=== PATIENT | female | born 1990 | race American Indian/Alaskan Native ===

== ENCOUNTER 2017-09-07 21:53 | Inpatient (IN) | payer MEDICAID ==
[2017-09-07 21:53] VITALS: BMI 37.3
[2017-09-07 22:51] LABS: BASO % 0.3 % (0.0-2.0); EOS % 0.2 % (0.0-4.0); LYMPH # 1.5 K/uL (1.0-4.3); LYMPH % 12.9 % (20.0-40.0); MEAN CORPUSCULAR HEMOGLOBIN 27.6 pg (27.0-31.0); MEAN CORPUSCULAR HGB CONC 32.8 g/dL (33.0-37.0); MEAN PLATELET VOLUME 9.3 fL (7.2-11.7); MONO # 0.4 K/uL (0.0-0.8); MONO % 3.7 % (0.0-10.0); NEUT # 9.7 K/uL (1.8-7.0); NEUT % 82.9 % (50.0-75.0); RBC 4.35 Mil/uL (3.80-5.20); WHITE BLOOD COUNT 11.7 K/uL (4.8-10.8)
[2017-09-07 22:56] LABS: MEAN CELL VOLUME 84.2 fL (81.0-99.0)
[2017-09-07 23:08] LABS: ALB/GLOB RATIO 1.2 (1.0-2.1); ALBUMIN 3.9 g/dL (3.5-5.0); ALT/SGPT 27 U/L (9-52); AST/SGOT 20 U/L (14-36); BLOOD UREA NITROGEN 8 mg/dL (7-17); CALCIUM 8.4 mg/dl (8.6-10.4); GFR AFRICAN-AMERICAN > 60; GFR NON-AFRICAN AMERICAN > 60; LIPASE 69 U/L (23-300)
[2017-09-07] MEDS ORDERED: Sodium Chloride 0.9% 1,000 ML IV ONE (23:47)
[2017-09-07] MEDS ORDERED: Sodium Chloride 0.9% 1,000 ML ONE (23:53)
--- NOTE | 2017-09-08 00:09 | C.PDOC ---
History Of Present Illness 27 year old female is brought to the ED by ambulance for evaluation of lower abdominal discomfort which began earlier today. 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 Patient states her LMP was 08/07/17. She denies fever, chills, nausea, vomiting, diarrhea. [id number]. Ectopic: "can't rember when nor which side" Was seeing Dr. Pleitez from psychiatry regularly regarding her persistent PCP abuse, up until 05/23 then is lost to followup with any psych services Lives with her mother. 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 As they will drug test for this job, she plans to stop PCP abuse and clean up for that drug test and job. Time Seen by Provider: 09/07/17 22:06 Chief Complaint (Nursing): Abdominal Pain History Per: Patient History/Exam Limitations: no limitations Onset/Duration Of Symptoms: Hrs Current Symptoms Are (Timing): Still Present Location Of Pain/Discomfort: RLQ, LLQ Radiation Of Pain To:: None Quality Of Discomfort: "Pain" Associated Symptoms: denies: Fever, Chills, Nausea, Vomiting, Diarrhea Additional History Per: Patient Abnormal Vaginal Bleeding: No Last Menstral Period: 08/07/2017 Past Medical History Reviewed: Historical Data, Nursing Documentation, Vital Signs Vital Signs: Last Vital Signs Temp 97.5 F L 09/08/17 04:01 Pulse 78 09/08/17 04:01 Resp 20 09/08/17 04:01 BP 100/56 L 09/08/17 04:01 Pulse Ox 98 09/08/17 04:27 - Medical History PMH: Asthma Surgical History: No Surg Hx - [facility] Procedures MANUAL ASSIST DELIV NEC (12/09/14) Family History: States: Unknown Family Hx - Social History Hx Tobacco Use: Yes Hx Alcohol Use: No Hx Substance Use: Yes - Immunization History Hx Tetanus Toxoid Vaccination: No Hx Influenza Vaccination: No Hx Pneumococcal Vaccination: No Review Of Systems Constitutional: Negative for: Fever, Chills Gastrointestinal: Positive for: Abdominal Pain (lower ). Negative for: Nausea, Vomiting Psych: Positive for: Other Physical Exam - Physical Exam Appears: Non-toxic, No Acute Distress, Other (bizarre black female ) Skin: Normal Color, Warm, Dry Head: Atraumatic, Normacephalic Eye(s): bilateral: Normal Inspection Oral Mucosa: Moist Chest: Symmetrical, No Deformity, No Tenderness Cardiovascular: Rhythm Regular, No Murmur Respiratory: Normal Breath Sounds, No Rales, No Rhonchi, No Wheezing Gastrointestinal/Abdominal: Soft, Tenderness (mild, to lower abdomen ), No Guarding, No Rebound, Other (abdomen does not appear gravid. 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 No intrauterine gestation. DDX: Early IUP , missed , ectopic . 2. Left adnexal lesions, indeterminate. Ectopic not excluded. 3. Complex free fluid within abdomen and pelvis , likely hemorrhage/clots. Progress Note: Bloodwork, UA, Obstructive Series abdomen ordered. Tylenol PO and IV fluids administered. Case discussed with [facility] radiologist at 330. Case dicussed with Dr. Regalado (MOUNTAIN OR GLACIER GUIDE balloon artist) at 330. Dr. Regalado evaluated the patient at bedside at 345. Difficult IV access, nursing asked to help with blood draw, with Marcia Sanchez radial artery with butterfly needle for T/ S draw without complication. Reevaluation Time: 04:27 Reassessment Condition: Improved Critical Care Time - Critical Care Note Total Time (in mins): 90 Documented critical care: time excludes all time spent performing seperately billable procedures. Medical Decision Making Medical Decision Making: L ectopic mild UTI continued PCP and cannabis abuse. Disposition Doctor Will See Patient In The: Hospital Counseled Patient/Family Regarding: Studies Performed, Diagnosis - Disposition Disposition: HOSPITALIZED Disposition Time: 03:46 Condition: GOOD Forms: [facility] (Arabic) - Clinical Impression Clinical Impression: Ectopic , UTI (urinary tract infection), PCP abuse, Cannabis abuse - Scribe Statement The provider has reviewed the documentation as recorded by the Scribe (Tiffanie Lutz) Provider Attestation: All medical record entries made by the Scribe were at my direction and personally dictated by me. I have reviewed the chart and agree that the record accurately reflects my personal performance of the history, physical exam, medical decision making, and the department course for this patient. I have also personally directed, reviewed, and agree with the discharge instructions and disposition.
[2017-09-08 00:28] LABS: SQUAMOUS EPITHIAL 1 /hpf (0-5); URINE BACTERIA RARE (<OCC); URINE BILIRUBIN NEGATIVE (NEGATIVE); URINE BLOOD NEGATIVE (NEGATIVE); URINE CLARITY Clear (Clear); URINE COLOR Yellow (YELLOW); URINE GLUCOSE (UA) NORMAL (Normal); URINE LEUKOCYTE ESTERASE 2+ Leu/uL (Negative); URINE NITRATE NEGATIVE (NEGATIVE); URINE PROTEIN 1+ mg/dL (NEGATIVE)
[2017-09-08 00:30] LABS: HCG,QUALITATIVE URINE POSITIVE (NEGATIVE)
[2017-09-08 01:10] LABS: BARBITURATES, UR NEGATIVE (NEGATIVE); BENZODIAZEPINES, UR NEGATIVE (NEGATIVE); OPIATES, UR NEGATIVE (NEGATIVE)
[2017-09-08 01:11] LABS: PHENCYCLIDINE, UR POSITIVE (NEGATIVE)
--- NOTE | 2017-09-08 03:15 | US ---
EXAM: US First Trimester, Transabdominal CLINICAL HISTORY: 27 years old, female; Pain; Pelvic pain; Patient HX: 2 miscarriages; Additional info: Early preg with pelvic pain TECHNIQUE: Real-time transabdominal obstetrical ultrasound of the maternal pelvis and a first trimester with image documentation. COMPARISON: No relevant prior studies available. FINDINGS: Gestation: No intrauterine gestational sac. Uterus/cervix: Endometrium: 1.3 cm in thickness. Closed cervix. Ovaries: Normal ovaries. Two thick walled hypoechoic lesions within left adnexal region, larger measuring 2.5 x 2.1 x 2.5 cm. Free fluid: Moderate complex free fluid and solid components within pelvis. Complex free fluid within upper abdomen, right greater than left. IMPRESSION: 1. No intrauterine gestation. DDX: Early IUP, missed , ectopic . 2. Left adnexal lesions, indeterminate. Ectopic not excluded. 3. Complex free fluid within abdomen and pelvis, likely hemorrhage/clots. EXAM: US , Transvaginal CLINICAL HISTORY: 27 years old, female; Pain; Pelvic pain; Patient HX: 2 miscarriages; Additional info: Early preg with pelvic pain TECHNIQUE: Real-time transvaginal obstetrical ultrasound of the maternal pelvis and a first trimester with image documentation. Transvaginal imaging was used for better evaluation of the fetus and adnexa. COMPARISON: No relevant prior studies available. FINDINGS: Gestation: No intrauterine gestational sac. Uterus/cervix: Endometrium: 1.3 cm in thickness. Closed cervix. Ovaries: Normal ovaries. Two thick walled hypoechoic lesions within left adnexal region, larger measuring 2.5 x 2.1 x 2.5 cm. Free fluid: Moderate complex free fluid and solid components within pelvis. Complex free fluid within upper abdomen, right greater than left.
--- NOTE | 2017-09-08 04:20 | CP.PCM.HP ---
History of Present Illness - History of Present Illness History of Present Illness: Patient received in E.D., Bed#3, in apparent pain - asking for pain medications ; not wanting to move or be moved. 27 y.o. P2052, LMP unsure, around 08/23/17 x 4 days presents with c/o sudden onset LLQ pain, approx 2200 hours 09/07/17 - "I felt faint and sweaty" pain scale 10/10. Took flory dust (combo PCP and marijuana) to alleviate the pain - (+) vomiting; no relief - came to E.D. In E.D., quant HCG 5168 mIU. TV ultrasound noted for two cystic structures in the vicinity of the left ovary, moderate amount of complex free fluid in cul-de-sac; no IUP seen. Patient with h/o prior ectopic . P OB: x 2: 2009 female, 2015, male; both FT; "normal weights". Spont ab x 2 ; VTOP x 2 with D&C. 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 (+) h/o chlamydia "in the past" PMH: h/o asthma - last attack "a while ago; been a couple of years"; Never intubated PSH: D&C x 2; cerclage x 2; 2005, laparoscopy for ectopic Meds: denies NKDA Soc Hx: (+) PCP and cannibanis use - last used 09/07/17, approx 2300 hours; (+) tobacco use, 2 cig/day. Denies EtOH use. Fam Hx: Mother alive 50 y.o. HTN. Father secondary to [place], h/o HTN, DM Present on Admission - Present on Admission Any Indicators Present on Admission: No Review of Systems - Gastrointestinal Gastrointestinal: As Per HPI, Abdominal Pain Additional comments: Slightly distended. (+) peritoneal signs. Soft. (+) rebound - generalized. - Genitourinary Additional comments: Bimanual exam deferred to O.R. - Reproductive: Female Reproductive:Female: As Per HPI - Neurological Neurological: Dizziness Past Patient History - Infectious Disease Hx of Infectious Diseases: None - Tetanus Immunizations Tetanus Immunization: Unknown - Past Social History Smoking Status: Light Smoker < 10 Cigarettes Daily Chewing Tobacco Use: No Cigar Use: No Alcohol: None Drugs: Cannabis, Other (PCP) - CARDIAC Hx Cardiac Disorders: No - PULMONARY Hx Asthma: Yes - ENDOCRINE/METABOLIC Hx Endocrine Disorders: No - HEMATOLOGICAL/ONCOLOGICAL Hx Blood Disorders: No - INTEGUMENTARY Hx Dermatological Problems: No - MUSCULOSKELETAL/RHEUMATOLOGICAL Hx Musculoskeletal Disorders: No - GASTROINTESTINAL Hx Gastrointestinal Disorders: No - GENITOURINARY/GYNECOLOGICAL Hx Sexually Transmitted Disorders: Yes (chlamydia) LMP:: 08/23/17 : 8 Para: 2 Termination of : 5 - PSYCHIATRIC Hx Substance Use: Yes - SURGICAL HISTORY Hx Surgeries: Yes Other/Comment: Laparoscopy for ectopic - ANESTHESIA Hx Anesthesia: Yes Hx Anesthesia Reactions: No Hx Malignant Hyperthermia: No Meds Allergies/Adverse Reactions: Allergies Allergy/AdvReac Type Severity Reaction Status Date / Time Penicillins Allergy SHORTNESS Verified 09/07/17 22:03 OF BREATH Physical Exam - Constitutional Appears: No Acute Distress Additional comments: In pain - Head Exam Head Exam: NORMAL INSPECTION, NORMOCEPHALIC (pale sclerae) - Eye Exam Additional comments: pale sclerae - ENT Exam ENT Exam: Mucous Membranes Moist - Neck Exam Neck exam: Positive for: Full Rom - Respiratory Exam Respiratory Exam: NORMAL BREATHING PATTERN - Cardiovascular Exam Cardiovascular Exam: Tachycardia - GI/Abdominal Exam GI & Abdominal Exam: Soft ((+) rebound tenderness; (+) peritoneal sign) - Extremities Exam Extremities exam: Positive for: full ROM - Neurological Exam Neurological exam: Alert, Oriented x3 - Psychiatric Exam Psychiatric exam: Anxious (slurred speech) - Skin Skin Exam: Dry, Intact, Normal Color, Warm Results - Vital Signs Recent Vital Signs: Last Vital Signs Temp 97.5 F L 09/08/17 04:01 Pulse 78 09/08/17 04:01 Resp 20 09/08/17 04:01 BP 100/56 L 09/08/17 04:01 Pulse Ox 100 09/08/17 04:01 - Labs Result Diagrams: 09/07/17 22:47 09/07/17 22:47 Labs: Laboratory Results - last 24 hr 09/07/17 09/07/17 09/08/17 22:47 22:47 00:17 WBC 11.7 H RBC 4.35 Hgb 12.0 Hct 36.6 MCV 84.2 D MCH 27.6 MCHC 32.8 L RDW 13.0 Plt Count 247 D MPV 9.3 Neut % (Auto) 82.9 H Lymph % (Auto) 12.9 L Kenton % (Auto) 3.7 Eos % (Auto) 0.2 Baso % (Auto) 0.3 Neut # 9.7 H Lymph # 1.5 Kenton # 0.4 Eos # 0.0 Baso # 0.0 Sodium 133 Potassium 4.1 Chloride 99 Carbon Dioxide 26 Anion Gap 12 BUN 8 Creatinine 0.5 L Est GFR ( Amer) > 60 Est GFR (Non-Af Amer) > 60 POC Glucose (mg/dL) Random Glucose 115 H Calcium 8.4 L Total Bilirubin 0.3 AST 20 ALT 27 Alkaline Phosphatase 45 Total Protein 7.1 Albumin 3.9 Globulin 3.2 Albumin/Globulin Ratio 1.2 Lipase 69 Beta HCG, Quant Urine Color Yellow Urine Clarity Clear Urine pH 7.0 Ur Specific Rowland 1.026 Urine Protein 1+ H Urine Glucose (UA) Normal Urine Ketones Negative Urine Blood Negative Urine Nitrate Negative Urine Bilirubin Negative Urine Urobilinogen 2.0 H Ur Leukocyte Esterase 2+ H Urine WBC (Auto) 47 H Urine RBC (Auto) 13 H Ur Squamous Epith Cells 1 Urine Bacteria Rare Urine HCG, Qual Positive Urine Opiates Screen Urine Methadone Screen Ur Barbiturates Screen Ur Phencyclidine Scrn Ur Amphetamines Screen U Benzodiazepines Scrn U Oth Cocaine Metabols U Cannabinoids Screen Alcohol, Quantitative < 10 Blood Type Antibody Screen 09/08/17 09/08/17 09/08/17 00:17 00:43 02:22 WBC RBC Hgb Hct MCV MCH MCHC RDW Plt Count MPV Neut % (Auto) Lymph % (Auto) Kenton % (Auto) Eos % (Auto) Baso % (Auto) Neut # Lymph # Kenton # Eos # Baso # Sodium Potassium Chloride Carbon Dioxide Anion Gap BUN Creatinine Est GFR ( Amer) Est GFR (Non-Af Amer) POC Glucose (mg/dL) Random Glucose Calcium Total Bilirubin AST ALT Alkaline Phosphatase Total Protein Albumin Globulin Albumin/Globulin Ratio Lipase Beta HCG, Quant 5168.00 Urine Color Urine Clarity Urine pH Ur Specific Rowland Urine Protein Urine Glucose (UA) Urine Ketones Urine Blood Urine Nitrate Urine Bilirubin Urine Urobilinogen Ur Leukocyte Esterase Urine WBC (Auto) Urine RBC (Auto) Ur Squamous Epith Cells Urine Bacteria Urine HCG, Qual Urine Opiates Screen Negative Urine Methadone Screen Negative Ur Barbiturates Screen Negative Ur Phencyclidine Scrn Positive H Ur Amphetamines Screen Negative U Benzodiazepines Scrn Negative U Oth Cocaine Metabols Negative U Cannabinoids Screen Positive H Alcohol, Quantitative Blood Type B POSITIVE Antibody Screen Negative 09/08/17 04:06 WBC RBC Hgb Hct MCV MCH MCHC RDW Plt Count MPV Neut % (Auto) Lymph % (Auto) Kenton % (Auto) Eos % (Auto) Baso % (Auto) Neut # Lymph # Kenton # Eos # Baso # Sodium Potassium Chloride Carbon Dioxide Anion Gap BUN Creatinine Est GFR ( Amer) Est GFR (Non-Af Amer) POC Glucose (mg/dL) 126 H Random Glucose Calcium Total Bilirubin AST ALT Alkaline Phosphatase Total Protein Albumin Globulin Albumin/Globulin Ratio Lipase Beta HCG, Quant Urine Color Urine Clarity Urine pH Ur Specific Rowland Urine Protein Urine Glucose (UA) Urine Ketones Urine Blood Urine Nitrate Urine Bilirubin Urine Urobilinogen Ur Leukocyte Esterase Urine WBC (Auto) Urine RBC (Auto) Ur Squamous Epith Cells Urine Bacteria Urine HCG, Qual Urine Opiates Screen Urine Methadone Screen Ur Barbiturates Screen Ur Phencyclidine Scrn Ur Amphetamines Screen U Benzodiazepines Scrn U Oth Cocaine Metabols U Cannabinoids Screen Alcohol, Quantitative Blood Type Antibody Screen Assessment & Plan - Assessment and Plan (Free Text) Assessment: Lab results and ultrasound images and report reviewed by me personally 27 yo P2052, elevated quant HCG, no IUP. free fluid in pelvis, h/o previous ectopic - probable ruptured ectopic . PCP/marijuana abuser; and tobacco use - h/o asthma. Patient counseled on surgical management: expl lap with removal of tube/diseased tissue; other R/C were discussed. Patient expressed an understanding and agrees with plan; no questions offered. Consents signed, dated, witnessed and placed in chart. Patient in guarded, yet stable condition Plan: Admit NPO IVFs Clindaymicn pre-op Benítez to gravity weight caller to O.R. - Date & Time Date: 09/08/17 Time: 04:35
[2017-09-08 04:40] LABS: INR 1.1; PROTHROMBIN TIME 12.5 SECONDS (9.7-12.2)
[2017-09-08] MEDS: Lactated Ringer's 1,000 ML IV SCH ×3 (04:52→16:00)
[2017-09-08] MEDS ORDERED: Lactated Ringer's 1,000 ML IV ONE ×3 (05:20→07:21)
[2017-09-08] MEDS ORDERED: Midazolam 2 MG/2 ML VIAL ONE (05:22)
[2017-09-08] MEDS ORDERED: Propofol 10 mg/ml Inj (20 ML) ONE (05:22)
[2017-09-08] MEDS ORDERED: Rocuronium 10 mg/ml (5 ml) ONE (06:39)
[2017-09-08] MEDS ORDERED: Morphine 4 MG/ML VIAL ONE (07:11)
--- NOTE | 2017-09-08 07:26 | PCM.SURG1 ---
Surgeon's Initial Post Op Note - Surgeon's Notes Surgeon: Daphnie Regalado MD Incising Machine Operator: Dr. Cancino Type of Anesthesia: General Endo Anesthesia Administered By: Ward Paz MD Pre-Operative Diagnosis: Ruptured ectopic ; history prevous ectopic ; polysubstance abuse Operative Findings: Ruptured left ectopic ; Status post right salpingectomy Post-Operative Diagnosis: Same Operation Performed: Left salpingectomy Specimen/Specimens Removed: Left fallopian tube Estimated Blood Loss: EBL {In ML}: 1,500 (U.O. 200mL; 2,000 mL LR) Blood Products Given: N/A Drains Used: No Drains Post-Op Condition: Good Date of Surgery/Procedure: 09/08/17 Time of Surgery/Procedure: 07:26
[2017-09-08] MEDS ORDERED: DiphenhydrAMINE 50 mg/ml Inj IVP PRN (07:31)
[2017-09-08] MEDS ORDERED: Morphine Monoject Barrel PCA 1mg/ml IV PRN (07:31)
--- NOTE | 2017-09-08 13:08 | OP ---
PROCEDURE DATE: 09/08/2017 SURGEON: Daphnie Regalado MD METALLURGICAL ENGINEERING TECHNICIAN: Damion Canicno MD ANESTHESIA ADMINISTERED BY: Ward Paz MD PREOPERATIVE DIAGNOSES: Ruptured left ectopic with a history of previous ectopic , history of polysubstance abuse. POSTOPERATIVE DIAGNOSES: Ruptured left ectopic with hemoperitoneum, history previous ectopic , status post previous right salpingectomy. OPERATION PERFORMED: Left salpingectomy. COMPLICATIONS: None. ESTIMATED BLOOD LOSS: 1500 mL URINE OUTPUT: 200 mL. INTRAVENOUS FLUIDS: 2,000 mL of LR. DESCRIPTION OF PROCEDURE: The patient was taken to the operating room after having obtained informed consent for the anticipated procedure. This included a discussion of possible risks and complications including but not limited to infection requiring antibiotics, hemorrhage requiring blood transfusion, repair of any damaged internal organs. The patient expressed an understanding. No questions were offered. Consents were signed, dated, witnessed and placed in the chart. En route to the operating room, the patient received Cleocin 600 mg. In the operating room, she was transferred to the operating room table where general anesthesia with endotracheal intubation was administered without incident. A Benítez indwelling catheter was inserted under sterile conditions and the patient was subsequently repositioned in a supine manner. The abdomen was prepped and she was draped in the usual sterile fashion. Using a scalpel, Pfannenstiel incision was made on the skin. The incision was carried down through the subcutaneous tissue using the Bovie electrocautery. The fascia was identified. It was nicked in the midline and the incision was extended bilaterally also using the Bovie electrocautery. The rectus muscle was dissected off the overlying fascia. The rectus muscle was in the midline by blunt dissection. The parietal peritoneum was identified and it was tented up using 2 Mara clamps and the abdomen was entered via sharp dissection. Immediately upon entering the abdominal cavity, copious amount of dark red blood with clots were retrieved. This was suctioned off. The patient was placed in Trendelenburg and the bowel was packed with moist lap pads. Exploration of the pelvis revealed a ruptured left ectopic in the interstitial portion, which is still actively bleeding. This was grasped by a Sproul clamp and using the TANNER apparatus, salpingectomy was performed along the area of the avascular mesosalpinx. The specimen was removed en toto and forwarded to the Pathology. The reverse Trendelenburg was then performed and the additional suction was performed to remove as much as possible, blood which had tracked along the paracolic gutters. Hemostasis was assured on the ligated end of the fallopian tube using 2-0 chromic in a running interlocking fashion and Surgicel was placed along the surgical site. The patient was returned to a straight supine position. The parietal peritoneum was reapproximated using 2-0 chromic in a running fashion. The rectus muscle was reapproximated in the midline using 2-0 chromic in a running fashion. The fascia was reapproximated using 0 Vicryl in a running fashion two halves. The skin was reapproximated using surgical clips. Pressure dressing was applied. The patient was extubated and transferred to the recovery room in stable condition. Dr. Cancino was present for the entire procedure from beginning to end. His presence was necessary for 1) assisting in adequate visualization of the operative field at all times; and 2) assisting in assuring hemostasis. Daphnie MD Fabricio ARIES
[2017-09-08 14:00] LABS: LYMPH # 0.8 K/uL (1.0-4.3); LYMPH % 4.9 % (20.0-40.0); MEAN CELL VOLUME 84.3 fL (81.0-99.0); MEAN CORPUSCULAR HEMOGLOBIN 27.5 pg (27.0-31.0); MEAN CORPUSCULAR HGB CONC 32.6 g/dL (33.0-37.0); MEAN PLATELET VOLUME 9.7 fL (7.2-11.7); MONO # 0.3 K/uL (0.0-0.8); MONO % 2.1 % (0.0-10.0); NEUT # 14.2 K/uL (1.8-7.0); PLATELET COUNT 184 K/uL (130-400); RBC 2.66 Mil/uL (3.80-5.20); RED CELL DISTRIBUTION WIDTH 12.8 % (11.5-14.5); WHITE BLOOD COUNT 15.3 K/uL (4.8-10.8)
[2017-09-08 14:08] LABS: HEMOGLOBIN 7.3 g/dL (11.0-16.0)
[2017-09-08 14:47] LABS: BANDS 1 % (0-2); LYMPHOCYTE 5 % (20-40); MONOCYTE 1 % (0-10); NEUTROPHIL 93 % (50-75); PLATELET ESTIMATE NORMAL (NORMAL); TOTAL CELLS COUNTED 100
[2017-09-08 14:48] LABS: HYPOCHROMIC SLIGHT; MICROCYTOSIS SLIGHT
[2017-09-09] MEDS: Lactated Ringer's 1,000 ML IV SCH ×4 (00:14→21:13)
[2017-09-09 08:54] LABS: BASO % 0.2 % (0.0-2.0); HEMOGLOBIN 6.6 g/dL (11.0-16.0); LYMPH # 2.1 K/uL (1.0-4.3); LYMPH % 13.5 % (20.0-40.0); MEAN CELL VOLUME 84.4 fL (81.0-99.0); MEAN CORPUSCULAR HEMOGLOBIN 27.4 pg (27.0-31.0); MEAN CORPUSCULAR HGB CONC 32.5 g/dL (33.0-37.0); MEAN PLATELET VOLUME 9.9 fL (7.2-11.7); MONO # 1.1 K/uL (0.0-0.8); MONO % 7.1 % (0.0-10.0); NEUT % 79.2 % (50.0-75.0); RBC 2.4 Mil/uL (3.80-5.20); RED CELL DISTRIBUTION WIDTH 12.8 % (11.5-14.5); WHITE BLOOD COUNT 15.2 K/uL (4.8-10.8)
[2017-09-09 09:25] LABS: ALB/GLOB RATIO 1.1 (1.0-2.1); ALBUMIN 2.6 g/dL (3.5-5.0); ALT/SGPT 20 U/L (9-52); AST/SGOT 16 U/L (14-36); BLOOD UREA NITROGEN 3 mg/dL (7-17); CALCIUM 7.8 mg/dl (8.6-10.4); GFR AFRICAN-AMERICAN > 60; GFR NON-AFRICAN AMERICAN > 60
[2017-09-09] MEDS ORDERED: Oxycodone/Acetaminophen 5/325 mg Tab PO PRN (10:23)
[2017-09-09] MEDS: Ferrous Fum/Folic Acid/IF/VI 1 Cap PO SCH ×3 (10:55→17:56)
--- NOTE | 2017-09-09 11:28 | CP.PCM.PN ---
<MarlineShahab Ash - Last Filed: 09/09/17 11:38> Subjective - Date & Time of Evaluation Date of Evaluation: 09/09/17 Time of Evaluation: 11:25 - Subjective Subjective: Patient was seen and examined at bedside. She is still complaining of pain, and does state that when she sits up she is "seeing stars." Patient was informed that due to her left sided emergent salpingectomy, she will no longer be able to have natural pregnancies. Patient expressed understanding of this fact. No further complaints at this time. Objective - Vital Signs/Intake and Output Vital Signs (last 24 hours): Temp Pulse Resp BP Pulse Ox 98.6 F 90 20 112/62 100 09/09/17 08:00 09/09/17 08:00 09/09/17 08:00 09/09/17 08:00 09/09/17 08:00 Intake and Output: 09/09/17 09/09/17 06:59 18:59 Intake Total 2655 Output Total 2050 Balance 605 - Medications Medications: Current Medications Diphenhydramine HCl (Benadryl) 25 mg IVP Q6 PRN PRN Reason: Itching / Pruritus Docusate Sodium (Colace) 100 mg PO TID [facility] Last Admin: 09/09/17 10:55 Dose: 100 mg Lactated Ringer's (Lactated Ringer's) 1,000 mls @ 125 mls/hr IV .Q8H [facility] Last Admin: 09/09/17 06:24 Dose: Not Given Iron (Ferocon) 1 cap PO TID [facility] Last Admin: 09/09/17 10:55 Dose: 1 cap Morphine Sulfate (Morphine) 1 mg IVP Q6 PRN PRN Reason: Pain, severe (8-10) Ondansetron HCl (Zofran Inj) 4 mg IVP Q8H PRN PRN Reason: Nausea/Vomiting Oxycodone/Acetaminophen (Percocet 5/325 Mg Tab) 2 tab PO Q4H PRN PRN Reason: Moderate to severe pain Stop: 09/12/17 10:24 - Labs Labs: 09/09/17 08:42 09/09/17 08:42 PT 12.5 SECONDS (9.7-12.2) H 09/08/17 04:41 INR 1.1 09/08/17 04:41 APTT 20 SECONDS (21-34) L 09/08/17 04:41 - Constitutional Appears: Well - Head Exam Head Exam: ATRAUMATIC, NORMAL INSPECTION, NORMOCEPHALIC - Eye Exam Eye Exam: EOMI, Normal appearance, PERRL Pupil Exam: NORMAL ACCOMODATION, PERRL - ENT Exam ENT Exam: Mucous Membranes Moist, Normal Exam - Neck Exam Neck Exam: Full ROM, Normal Inspection. absent: Lymphadenopathy - Respiratory Exam Respiratory Exam: Clear to Ausculation Bilateral, NORMAL BREATHING PATTERN - Cardiovascular Exam Cardiovascular Exam: REGULAR RHYTHM, +S1, +S2. absent: Murmur - GI/Abdominal Exam GI & Abdominal Exam: Soft, Normal Bowel Sounds. absent: Tenderness Additional comments: Site of dawson is c/d/i with no signs of infection - Rectal Exam Rectal Exam: NORMAL INSPECTION - Extremities Exam Extremities Exam: Full ROM, Normal Capillary Refill, Normal Inspection. absent : Calf Tenderness, Joint Swelling, Pedal Edema - Back Exam Back Exam: NORMAL INSPECTION. absent: CVA tenderness (L), CVA tenderness (R) - Neurological Exam Neurological Exam: Alert, Awake, CN II-XII Intact, Normal Gait, Oriented x3 - Psychiatric Exam Psychiatric exam: Normal Affect, Normal Mood - Skin Skin Exam: Dry, Intact, Normal Color, Warm Assessment and Plan - Assessment and Plan (Free Text) Assessment: 27 year old with Past Medical History of drug abuse presents with Ruptured left sided ectopic s/p Left Salpingectomy POD #1, and 1.5 L blood loss. Has previous history of ectopic with R Salpingectomy as well. Exploratory Laparotomy with Left Salpingectomy POD#1 - Pain control with Percocet for moderate to severe, and Morphine IV for breakthrough pain - Encourage use of incentive spirometer - D/c blackman, encourage ambulation - Discontinue fluids, tolerating diet - Pre-op prophylactic antibiotics discontinued Acute Blood Loss Anemia - Started patient on iron TID and colace TID - Transfuse 2 U PRBC's DVT Prophylaxis - SCD's Dispo: Patient will be monitored until POD 3, 09/11/16, at which point we will evaluate discharge. Patient is to follow up with [facility] within a week of discharge. <Daphnie Regalado - Last Filed: 09/09/17 14:50> Objective - Vital Signs/Intake and Output Vital Signs (last 24 hours): Temp Pulse Resp BP Pulse Ox 98.1 F 102 H 20 109/66 98 09/09/17 13:55 09/09/17 13:55 09/09/17 13:55 09/09/17 13:55 09/09/17 12:20 Intake and Output: 09/09/17 09/09/17 06:59 18:59 Intake Total 2655 0 Output Total 2050 Balance 605 0 - Medications Medications: Current Medications Diphenhydramine HCl (Benadryl) 25 mg IVP Q6 PRN PRN Reason: Itching / Pruritus Docusate Sodium (Colace) 100 mg PO TID [facility] Last Admin: 09/09/17 10:55 Dose: 100 mg Lactated Ringer's (Lactated Ringer's) 1,000 mls @ 125 mls/hr IV .Q8H [facility] Last Admin: 09/09/17 06:24 Dose: Not Given Iron (Ferocon) 1 cap PO TID [facility] Last Admin: 09/09/17 10:55 Dose: 1 cap Morphine Sulfate (Morphine) 1 mg IVP Q6 PRN PRN Reason: Pain, severe (8-10) Ondansetron HCl (Zofran Inj) 4 mg IVP Q8H PRN PRN Reason: Nausea/Vomiting Oxycodone/Acetaminophen (Percocet 5/325 Mg Tab) 2 tab PO Q4H PRN PRN Reason: Moderate to severe pain Stop: 09/12/17 10:24 Last Admin: 09/09/17 13:05 Dose: 2 tab - Labs Labs: 09/09/17 08:42 09/09/17 08:42 PT 12.5 SECONDS (9.7-12.2) H 09/08/17 04:41 INR 1.1 09/08/17 04:41 APTT 20 SECONDS (21-34) L 09/08/17 04:41 Attending/Attestation - Attestation I have personally seen and examined this patient.: Yes I have fully participated in the care of the patient.: Yes I have reviewed all pertinent clinical information, including history, physical exam and plan: Yes Notes (Text): 09/09/17 14:46 At the time of evaluation of patient with Resident, patient denied nausea or vomiting after regular diet - breakfast. As documented, findings at surgery and procedure performed was discussed at length. It was also explained that in light of the bilateral salpingectomy, patient will not be able to conceive spontaneously. Patient appeared moved. Also, post-operative anemia explained; recommendation for blood transfusion was made - patient receptive. Patient encouraged to walk, to use incentive spirometer; and upon discharge, to follow up at [facility] in 1 week. Patient is clinically stable. Plan: 1) as above.
[2017-09-09] MEDS: Oxycodone/Acetaminophen 5/325 mg Tab PO PRN ×2 (13:05→21:13)
[2017-09-10] MEDS: Lactated Ringer's 1,000 ML IV SCH (04:00)
[2017-09-10 06:54] LABS: BASO # 0.1 K/uL (0.0-0.2); BASO % 0.6 % (0.0-2.0); EOS % 0.4 % (0.0-4.0); HEMOGLOBIN 7.9 g/dL (11.0-16.0); LYMPH # 3.3 K/uL (1.0-4.3); LYMPH % 29.6 % (20.0-40.0); MEAN CELL VOLUME 84.5 fL (81.0-99.0); MEAN CORPUSCULAR HGB CONC 33.1 g/dL (33.0-37.0); MEAN PLATELET VOLUME 10.2 fL (7.2-11.7); MONO # 0.9 K/uL (0.0-0.8); MONO % 7.6 % (0.0-10.0); NEUT # 6.9 K/uL (1.8-7.0); NEUT % 61.8 % (50.0-75.0); RBC 2.83 Mil/uL (3.80-5.20); RED CELL DISTRIBUTION WIDTH 13.3 % (11.5-14.5); WHITE BLOOD COUNT 11.2 K/uL (4.8-10.8)
[2017-09-10] MEDS: Oxycodone/Acetaminophen 5/325 mg Tab PO PRN ×2 (09:04→19:49)
[2017-09-10] MEDS: Ferrous Fum/Folic Acid/IF/VI 1 Cap PO SCH ×3 (09:04→17:47)
--- NOTE | 2017-09-10 09:26 | CP.PCM.PN ---
Subjective - Date & Time of Evaluation Date of Evaluation: 09/10/17 Time of Evaluation: 09:23 - Subjective Subjective: s: tolerating reg diet; +flatus; no bm. pain controlled with percocet. oob to br denies syncope, dizziness. Objective - Vital Signs/Intake and Output Vital Signs (last 24 hours): Temp Pulse Resp BP Pulse Ox 98.6 F 85 18 104/66 100 09/10/17 07:25 09/10/17 07:25 09/10/17 07:25 09/10/17 07:25 09/10/17 07:25 Intake and Output: 09/10/17 09/10/17 06:59 18:59 Intake Total 2320 Output Total 700 Balance 1620 - Medications Medications: Current Medications Diphenhydramine HCl (Benadryl) 25 mg IVP Q6 PRN PRN Reason: Itching / Pruritus Docusate Sodium (Colace) 100 mg PO TID [facility] Last Admin: 09/10/17 09:04 Dose: 100 mg Lactated Ringer's (Lactated Ringer's) 1,000 mls @ 125 mls/hr IV .Q8H [facility] Last Admin: 09/10/17 04:00 Dose: 125 mls/hr Iron (Ferocon) 1 cap PO TID [facility] Last Admin: 09/10/17 09:04 Dose: 1 cap Morphine Sulfate (Morphine) 1 mg IVP Q6 PRN PRN Reason: Pain, severe (8-10) Last Admin: 09/10/17 04:06 Dose: 1 mg Ondansetron HCl (Zofran Inj) 4 mg IVP Q8H PRN PRN Reason: Nausea/Vomiting Oxycodone/Acetaminophen (Percocet 5/325 Mg Tab) 2 tab PO Q4H PRN PRN Reason: Moderate to severe pain Stop: 09/12/17 10:24 Last Admin: 09/10/17 09:04 Dose: 2 tab - Labs Labs: 09/10/17 06:41 09/09/17 08:42 PT 12.5 SECONDS (9.7-12.2) H 09/08/17 04:41 INR 1.1 09/08/17 04:41 APTT 20 SECONDS (21-34) L 09/08/17 04:41 - Constitutional Appears: Well, No Acute Distress - Head Exam Head Exam: ATRAUMATIC, NORMOCEPHALIC - Respiratory Exam Respiratory Exam: NORMAL BREATHING PATTERN - GI/Abdominal Exam GI & Abdominal Exam: Soft (Pfannensteil incision: c/d/i; no exudate), Normal Bowel Sounds - Extremities Exam Extremities Exam: Normal Inspection - Neurological Exam Neurological Exam: Alert, Oriented x3 - Psychiatric Exam Psychiatric exam: Normal Affect - Skin Skin Exam: Pallor (slight pallor) Assessment and Plan - Assessment and Plan (Free Text) Assessment: : POD #2 Laparotomy with Salpingectomy for ruptured ectopic Secondary Anemia s/p 2uprbc( hgb 6.6 to 7.9) UTI Plan: Repeat cbc @18:00 IV to hep lock Ambulate Abd binder Begin Macrobid
[2017-09-10] MEDS: Lactobacillus Acidophilus 500 MU Cap PO SCH ×2 (10:43→17:47)
[2017-09-10] MEDS: Docusate-Senna 50 mg-8.6 mg Tab PO SCH ×2 (10:51→17:47)
[2017-09-10 19:59] LABS: HEMOGLOBIN 8.8 g/dL (11.0-16.0); MEAN CELL VOLUME 84.6 fL (81.0-99.0); MEAN CORPUSCULAR HEMOGLOBIN 27.7 pg (27.0-31.0); MEAN CORPUSCULAR HGB CONC 32.8 g/dL (33.0-37.0); MEAN PLATELET VOLUME 9.1 fL (7.2-11.7); RBC 3.16 Mil/uL (3.80-5.20); RED CELL DISTRIBUTION WIDTH 13.1 % (11.5-14.5); WHITE BLOOD COUNT 11.9 K/uL (4.8-10.8)
[2017-09-11] MEDS: Oxycodone/Acetaminophen 5/325 mg Tab PO PRN (04:05)
--- NOTE | 2017-09-11 07:08 | CARD ---
APPROVED REPORT EKG Measurement Heart [id number] [place] 126P54 [id number] <Conclusion> Normal sinus rhythm Normal ECG
[2017-09-11 08:03] VITALS: BP 102/68; PULSE 72; RESP 18; TEMP 98.3; O2SAT 95
[2017-09-11] MEDS: Lactobacillus Acidophilus 500 MU Cap PO SCH (09:20)
[2017-09-11] MEDS: Docusate-Senna 50 mg-8.6 mg Tab PO SCH (09:21)
[2017-09-11] MEDS: Ferrous Fum/Folic Acid/IF/VI 1 Cap PO SCH (09:28)
--- NOTE | 2017-09-12 06:01 | DS ---
DISCHARGE DIAGNOSIS: Ruptured left ectopic , status post left salpingectomy. PROCEDURES PERFORMED: Left salpingectomy with laparotomy. CONSULTATIONS: None. HOSPITAL COURSE: Patient is a 27-year-old female, who presented to the emergency room with complaint of abdominal pain in left lower quadrant, which was sudden in onset. Patient had an ultrasound done and labs done and was found to have ruptured ectopic . She was thereafter taken to the operating room by Dr. Regalado. PAST MEDICAL HISTORY: Positive for asthma. PAST SURGICAL HISTORY: D and C x2, cerclage x2, laparoscopy for ectopic , and status post right salpingectomy. 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 SOCIAL HISTORY: Positive for PCP and cannabis use as well as for tobacco use. Patient was examined in the emergency room and had an ultrasound done and thereafter taken to the operating room for ruptured ectopic . She underwent laparotomy with left salpingectomy by Dr. Regalado. Postoperatively, patient was found to be anemic secondary to the rupture, the ectopic and the blood loss. She was thereafter transfused 2 units of packed red blood cells. Her diet was gradually advanced and she was transitioned to p.o. pain medications. The beta-hCG was monitored and found to have dropped. The hemoglobin improved after the transfusion. The patient started tolerating a regular diet. Her pain was adequately controlled. She was passing gas and thereafter the patient was discharged on 09/11/2016, which was postoperative day #3. She was advised to follow up at the [facility] in 1 week for staple removal. Patient was given infection precaution at the time of the discharge. Eliezer Cordero MD
== END 2017-09-11 14:11 | disposition home or self-care (01) | DRG 378 ==
LOC: C.ER 21:53 → C.6T 09-08 03:46
PROVIDERS: ADMIT Obstetrics & Gynecology; ATTEND Obstetrics & Gynecology
PROC: 10T20ZZ Resection of Products of Conception, Ectopic, Open Approach (ICD-10-PCS; 2017-09-08)
PROC: 0UT60ZZ Resection of Left Fallopian Tube, Open Approach (ICD-10-PCS; principal; 2017-09-08 05:00)
PROC: 30233N1 Transfusion of Nonautologous Red Blood Cells into Peripheral Vein, Percutaneous Approach (ICD-10-PCS; 2017-09-09)
DX: O00.102 Left tubal pregnancy without intrauterine pregnancy (principal); K66.1 Hemoperitoneum; O08.83 Urinary tract infection following an ectopic and molar pregnancy; D62 Acute posthemorrhagic anemia; F16.10 Hallucinogen abuse, uncomplicated; Z87.59 Personal history of other complications of pregnancy, childbirth and the puerperium; F12.10 Cannabis abuse, uncomplicated; J45.909 Unspecified asthma, uncomplicated; Z82.49 Family history of ischemic heart disease and other diseases of the circulatory system; Z83.3 Family history of diabetes mellitus

== ENCOUNTER 2018-03-11 22:50 | Emergency (ER) | payer MEDICAID ==
[2018-03-11 22:50] VITALS: BMI 37.3
[2018-03-11 23:20] VITALS: BP 112/77; PULSE 70; RESP 20; TEMP 98.9; O2SAT 97
--- NOTE | 2018-03-11 23:47 | C.PDOC ---
History Of Present Illness 27 y/o female with Hx of PCP abuse presents to ED for complaints of bilateral parasrernal area chest pain that began few days. Denies injuries or any other physical complaints. Time Seen by Provider: 03/11/18 23:43 Chief Complaint (Nursing): Chest Pain History Per: Patient History/Exam Limitations: no limitations Onset/Duration Of Symptoms: Hrs Current Symptoms Are (Timing): Still Present Associated Symptoms: denies: Nausea, Dyspnea, Diaphoresis, Syncope Modifying Factors: None Exacerbating Factors: None Alleviating Factors: None Recent travel outside of the [place]: No Past Medical History Reviewed: Historical Data, Nursing Documentation, Vital Signs Vital Signs: Last Vital Signs Temp 98.9 F 03/11/18 23:11 Pulse 70 03/11/18 23:11 Resp 20 03/11/18 23:11 BP 112/77 03/11/18 23:11 Pulse Ox 97 03/11/18 23:47 - Medical History PMH: Asthma, Sexually Transmitted Disease (chlamydia) - [facility] Procedures MANUAL ASSIST DELIV NEC (12/09/14) RESECTION OF LEFT FALLOPIAN TUBE, OPEN APPROACH (09/08/17) RESECTION OF PRODUCTS OF CONCEPTION, ECTOPIC, OPEN APPROACH (09/08/17) TRANSFUSE NONAUT RED BLOOD CELLS IN PERIPH VEIN, PERC (09/08/17) Family History: States: Unknown Family Hx - Social History Hx Tobacco Use: Yes Hx Alcohol Use: No Hx Substance Use: Yes - Immunization History Hx Tetanus Toxoid Vaccination: No Hx Influenza Vaccination: No Hx Pneumococcal Vaccination: No Review Of Systems Constitutional: Negative for: Fever, Chills Cardiovascular: Positive for: Chest Pain (Bilateral parasternal ) Gastrointestinal: Negative for: Nausea, Vomiting, Abdominal Pain, Diarrhea Skin: Negative for: Rash Neurological: Negative for: Weakness, Numbness Physical Exam - Physical Exam Appears: Non-toxic, No Acute Distress, Other (Nurse amisha at bed-side ) Skin: Warm, Dry, Other (Bizarre) Head: Atraumatic, Normacephalic Eye(s): bilateral: Normal Inspection, PERRL, EOMI Oral Mucosa: Moist Neck: Supple Chest: Symmetrical, Other (Digitally reproducible bilateral discomfort between T4-T5 areas) Cardiovascular: Rhythm Regular Respiratory: Normal Breath Sounds, No Decreased Breath Sounds, No Rales, No Rhonchi, No Wheezing Gastrointestinal/Abdominal: Soft, No Tenderness Extremity: Normal ROM, No Deformity Extremity: Bilateral: Atraumatic, Normal Color And Temperature, Normal ROM Neurological/Psych: Oriented x3, Normal Speech (Speaking in full sentences ), Other (No focal deficits ) Gait: Steady ED Course And Treatment ECG: Interpreted By Me ECG Rhythm: Sinus Rhythm ECG Interpretation: Normal Rate From EC O2 Sat by Pulse Oximetry: 97 (RA) Pulse Ox Interpretation: Normal Progress Note: motrin, ice pack Reevaluation Time: 23:46 Reassessment Condition: Improved Medical Decision Making Medical Decision Making: Administered Motrin. Ordered bloof work, EKG, and urinalysis. costochondritis, normal EKG persistent PCP abuse, daily- poor insight into quitting. Disposition Doctor Will See Patient In The: Office Counseled Patient/Family Regarding: Studies Performed, Diagnosis - Disposition Referrals: David Landa DO [Staff Provider] - Disposition: HOME/ ROUTINE Disposition Time: 23:47 Condition: GOOD Additional Instructions: ice packs to the chest wall 1/2 hour per hour, nothing hot. motrin/Advil 400-600 mg every 6 hours as needed follow-up With Dr. Landa Continue Therapy and efforts to stop smoking PCP regularly. There are serious physical and mental health hazards associated with the abuse of this drug. Instructions: Costochondritis Forms: [facility] (Spanish) - Clinical Impression Clinical Impression: PCP abuse, Chest wall discomfort - Scribe Statement The provider has reviewed the documentation as recorded by the Scribverena Hillman All medical record entries made by the Scribe were at my direction and personally dictated by me. I have reviewed the chart and agree that the record accurately reflects my personal performance of the history, physical exam, medical decision making, and the department course for this patient. I have also personally directed, reviewed, and agree with the discharge instructions and disposition.
[2018-03-11 23:56] LABS: HCG,QUALITATIVE URINE NEGATIVE (NEGATIVE)
[2018-03-11 23:58] LABS: SQUAMOUS EPITHIAL 15 /hpf (0-5); URINE BILIRUBIN NEGATIVE (NEGATIVE); URINE BLOOD 3+ (NEGATIVE); URINE CLARITY Hazy (Clear); URINE COLOR Yellow (YELLOW); URINE GLUCOSE (UA) NORMAL (Normal); URINE LEUKOCYTE ESTERASE 3+ Leu/uL (Negative); URINE PROTEIN NEGATIVE (NEGATIVE); URINE UROBILINOGEN NORMAL mg/dL (0.2-1.0)
[2018-03-12] LABS: URINE BACTERIA FEW (<OCC)
[2018-03-12 00:06] LABS: BARBITURATES, UR NEGATIVE (NEGATIVE); BENZODIAZEPINES, UR NEGATIVE (NEGATIVE); OPIATES, UR NEGATIVE (NEGATIVE)
[2018-03-12 01:18] LABS: PHENCYCLIDINE, UR POSITIVE (NEGATIVE)
--- NOTE | 2018-03-15 16:34 | CARD ---
APPROVED REPORT EKG Measurement Heart [id number] [place] 132P52 [id number] <Conclusion> Normal sinus rhythm Normal ECG
== END 2018-03-12 | disposition home or self-care (01) ==
LOC: C.ER 22:50
DX: R07.89 Other chest pain (principal); F16.10 Hallucinogen abuse, uncomplicated

== ENCOUNTER 2019-01-13 04:02 | Emergency (ER) | payer MEDICAID ==
[2019-01-13 04:02] VITALS: BMI 37.3
--- NOTE | 2019-01-13 04:25 | C.PDOC ---
History Of Present Illness 28 year old female presents with chest pain intermittently for the past few days. Patient describes the pain as sharp to the left parasternal area, increasing with movement and palpation. Denies SOB, fever, or chills. Chief Complaint (Nursing): Chest Pain History Per: Patient History/Exam Limitations: no limitations Onset/Duration Of Symptoms: Days, Intermittent Episodes Current Symptoms Are (Timing): Still Present Quality: Sharp Associated Symptoms: denies: Dyspnea, Other (Fever, chills) Exacerbating Factors: Movement, Other (Palpation) Recent travel outside of the [place]: No Past Medical History Reviewed: Historical Data, Nursing Documentation, Vital Signs Primary Care Provider: David Landa - Medical History PMH: Asthma, Sexually Transmitted Disease (chlamydia) Denies: Anxiety, Bipolar Disorder, Bronchitis, COPD, Depression, Emphysema, Paranoia, Pneumonia, Post Traumatic Stress Disorder, Pulmonary Embolism, Chronic Kidney Disease, Schizophrenia, Sleep Apnea - [facility] Procedures MANUAL ASSIST DELIV NEC (12/09/14) RESECTION OF LEFT FALLOPIAN TUBE, OPEN APPROACH (09/08/17) RESECTION OF PRODUCTS OF CONCEPTION, ECTOPIC, OPEN APPROACH (09/08/17) TRANSFUSE NONAUT RED BLOOD CELLS IN PERIPH VEIN, PERC (09/08/17) Family History: States: Unknown Family Hx - Social History Hx Tobacco Use: Yes Hx Alcohol Use: Yes Hx Substance Use: Yes - Immunization History Hx Tetanus Toxoid Vaccination: No Hx Influenza Vaccination: No Hx Pneumococcal Vaccination: No Review Of Systems Constitutional: Negative for: Fever, Chills Cardiovascular: Positive for: Chest Pain Respiratory: Negative for: Shortness of Breath Gastrointestinal: Negative for: Nausea, Vomiting Neurological: Negative for: Weakness, Numbness Physical Exam - Physical Exam Appears: Non-toxic, No Acute Distress Skin: Normal Color, Warm Head: Atraumatic, Normacephalic Eye(s): bilateral: Normal Inspection Oral Mucosa: Moist Neck: Normal, Supple Chest: Symmetrical, Tenderness (Left parasternal), Other (No swelling or erythema) Cardiovascular: Rhythm Regular Respiratory: Normal Breath Sounds, No Rales, No Rhonchi, No Wheezing Gastrointestinal/Abdominal: Soft, No Tenderness Neurological/Psych: Oriented x3, Normal Speech ED Course And Treatment - Laboratory Results Result Diagrams: 01/13/19 04:45 01/13/19 04:45 ECG: Interpreted By Me, Viewed By Me ECG Rhythm: Sinus Rhythm ECG Interpretation: Normal, No Acute Changes Interpretation Of ECG: NSR, normal tracings. Rate From EC - Radiology CXR: Interpreted by Me, Viewed By Me CXR Interpretation: Yes: No Acute Disease, Other (normal chest film.). No: Infiltrates Progress Note: EKG, blood work, and CXR ordered. Toradol administered. Disposition Counseled Patient/Family Regarding: Diagnosis - Disposition Referrals: David Landa DO [Staff Provider] - Disposition: HOME/ ROUTINE Disposition Time: 05:31 Condition: STABLE Prescriptions: Naproxen 375 mg PO TIDPC #14 tablet Instructions: Costochondritis (DC) Forms: [employer] (German) - POA Present On Arrival: None - Clinical Impression Clinical Impression: Chest wall pain - Scribe Statement The provider has reviewed the documentation as recorded by the Scribverena Zurita All medical record entries made by the Scribe were at my direction and personally dictated by me. I have reviewed the chart and agree that the record accurately reflects my personal performance of the history, physical exam, medical decision making, and the department course for this patient. I have also personally directed, reviewed, and agree with the discharge instructions and disposition.
[2019-01-13 04:28] VITALS: RESP 20; O2SAT 100
[2019-01-13 04:51] LABS: BASO # 0.1 K/uL (0.0-0.2); BASO % 0.7 % (0.0-2.0); EOS # 0.1 K/uL (0.0-0.7); EOS % 0.7 % (0.0-4.0); LYMPH # 3.1 K/uL (1.0-4.3); LYMPH % 31.6 % (20.0-40.0); MEAN CELL VOLUME 86.3 fL (81.0-99.0); MEAN CORPUSCULAR HEMOGLOBIN 27.9 pg (27.0-31.0); MEAN CORPUSCULAR HGB CONC 32.3 g/dL (33.0-37.0); MEAN PLATELET VOLUME 9.7 fL (7.2-11.7); MONO # 0.8 K/uL (0.0-0.8); MONO % 7.7 % (0.0-10.0); NEUT # 5.8 K/uL (1.8-7.0); NEUT % 59.3 % (50.0-75.0); RBC 4.29 Mil/uL (3.80-5.20); RED CELL DISTRIBUTION WIDTH 12.9 % (11.5-14.5); WHITE BLOOD COUNT 9.8 K/uL (4.8-10.8)
[2019-01-13 05:08] LABS: ALB/GLOB RATIO 1.3 (1.0-2.1); ALBUMIN 3.7 g/dL (3.5-5.0); BLOOD UREA NITROGEN 13 mg/dL (7-17); CALCIUM 8.4 mg/dl (8.6-10.4); GFR NON-AFRICAN AMERICAN > 60
[2019-01-13 05:26] LABS: ALT/SGPT 12 U/L (9-52); AST/SGOT 28 U/L (14-36)
[2019-01-13 06:04] LABS: URINE BILIRUBIN NEGATIVE (NEGATIVE); URINE CLARITY Hazy (Clear); URINE COLOR YELLOW (YELLOW); URINE GLUCOSE (UA) Normal (Normal)
[2019-01-13 06:05] LABS: SQUAMOUS EPITHIAL 9 /hpf (0-5); URINE BACTERIA RARE (<OCC); URINE BLOOD 1+ (NEGATIVE); URINE LEUKOCYTE ESTERASE 2+ Leu/uL (Negative); URINE PROTEIN NEGATIVE (NEGATIVE); URINE UROBILINOGEN Normal mg/dL (0.2-1.0)
[2019-01-13 06:37] VITALS: BP 104/71; PULSE 80; TEMP 98.2
--- NOTE | 2019-01-13 07:31 | RAD ---
Date of service: 01/13/2019 HISTORY: chest pain COMPARISON: No prior. TECHNIQUE: Chest PA and lateral views FINDINGS: LUNGS: No active pulmonary disease. PLEURA: No significant pleural effusion identified. No pneumothorax apparent. CARDIOVASCULAR: No aortic atherosclerotic calcification present. Normal cardiac size. No pulmonary vascular congestion. OSSEOUS STRUCTURES: No significant abnormalities. VISUALIZED UPPER ABDOMEN: Normal. OTHER FINDINGS: None. IMPRESSION: No active disease.
--- NOTE | 2019-01-13 16:53 | CARD ---
APPROVED REPORT Date of service: 01/13/2019 EKG Measurement Heart [id number] 124P30 [id number] <Conclusion> Normal sinus rhythm Normal ECG
== END 2019-01-13 06:37 | disposition home or self-care (01) ==
LOC: C.ER 04:02
DX: R07.89 Other chest pain (principal); N39.0 Urinary tract infection, site not specified; Z72.0 Tobacco use
CPT/HCPCS: 71046; 80053; 81001; 81025; 84484; 85025; 87086; 87181; 93005; 96374; 99284; J1885

== ENCOUNTER 2019-01-13 22:04 | Emergency (ER) | payer MEDICAID ==
[2019-01-13 22:04] VITALS: BMI 37.3
[2019-01-13 22:26] VITALS: RESP 20
--- NOTE | 2019-01-13 22:27 | C.PDOC ---
History Of Present Illness 28 yr old female w/ hx of asthma, STD, recent UTI p/w dizziness after taking naproxen. She denies any current dizziness but notes that after taking naproxen for chest pain earlier today she noticed dizziness which then resolved. She then took another naproxen 3 hours ago and noticed dizziness afterwards. Dizziness is non-vertigo like, and more like a lightheadedness. No FND. No headache. She denies having any of these symptoms when she took her Macrobid. She denies any current chest pain, shortness of breath or headache. No fall or trauma. She denies any other complaints. Time Seen by Provider: 01/13/19 22:27 Chief Complaint (Nursing): Dizziness/Lightheaded Past Medical History Vital Signs: Last Vital Signs Temp 99.1 F 01/13/19 22:20 Pulse 71 01/13/19 22:20 Resp 20 01/13/19 22:20 BP 115/80 01/13/19 22:20 Pulse Ox 98 01/13/19 22:20 Primary Care Provider: David Landa - Medical History PMH: Asthma, Sexually Transmitted Disease (chlamydia) Denies: Anxiety, Bipolar Disorder, Bronchitis, COPD, Depression, Emphysema, Paranoia, Pneumonia, Post Traumatic Stress Disorder, Pulmonary Embolism, Chronic Kidney Disease, Schizophrenia, Sleep Apnea - [facility] Procedures MANUAL ASSIST DELIV NEC (12/09/14) RESECTION OF LEFT FALLOPIAN TUBE, OPEN APPROACH (09/08/17) RESECTION OF PRODUCTS OF CONCEPTION, ECTOPIC, OPEN APPROACH (09/08/17) TRANSFUSE NONAUT RED BLOOD CELLS IN PERIPH VEIN, PERC (09/08/17) Family History: States: Unknown Family Hx - Social History Hx Tobacco Use: Yes Hx Alcohol Use: No Hx Substance Use: Yes - Immunization History Hx Tetanus Toxoid Vaccination: No Hx Influenza Vaccination: No Hx Pneumococcal Vaccination: No Review Of Systems Constitutional: Negative for: Fever, Chills, Weakness, Malaise Eyes: Negative for: Pain, Vision Change ENT: Negative for: Ear Pain, Ear Discharge, Nose Pain, Mouth Pain, Mouth Swelling, Throat Pain Cardiovascular: Negative for: Chest Pain, Palpitations Respiratory: Negative for: Cough, Shortness of Breath, Hemoptysis Gastrointestinal: Negative for: Nausea, Vomiting, Abdominal Pain, Constipation, Melena Genitourinary: Negative for: Dysuria, Frequency, Incontinence, Hematuria, Vaginal Discharge, Vaginal Bleeding Musculoskeletal: Negative for: Neck Pain, Shoulder Pain Skin: Negative for: Rash, Lesions Neurological: Negative for: Weakness, Numbness, Confusion, Seizures, Headache Psych: Negative for: Anxiety, Psychosis Physical Exam - Physical Exam Appears: Well, No Acute Distress Skin: Normal Color, Warm, Dry Head: Atraumatic, Normacephalic Eye(s): bilateral: Normal Inspection, PERRL, EOMI Nose: Normal Oral Mucosa: Moist Tongue: Normal Appearing Lips: Normal Appearing Throat: Normal, No Erythema, No Exudate, No Drooling, No Mass Neck: Normal, Normal ROM, Supple, Other (no meningeal signs) Lymphatic: Normal Exam Cardiovascular: Rhythm Regular Respiratory: Normal Breath Sounds Gastrointestinal/Abdominal: Normal Exam Back: Normal Inspection, No CVA Tenderness, No Vertebral Tenderness Extremity: Normal ROM, No Tenderness, No Pedal Edema Neurological/Psych: Oriented x3, Normal Speech, Normal Cognition, Normal Cranial Nerves, No Cerebellar Signs, Normal Motor, Normal Sensation, No Dysarthria Gait: Steady Extremity: Right: No Drift, Left: No Drift, Upper: No Drift, Lower: No Drift ED Course And Treatment O2 Sat by Pulse Oximetry: 98 Medical Decision Making Medical Decision Makin yr old female w/ recent dx of UTI p/w dizziness described as lightheadedness after taking naproxen. No fall or trauma. No meningeal signs. Normal neuro exam. No vertigo symptoms. Lightheadedness only occurs after taking naproxen. No other co-ingestions. Notes she feels fine when she takes her macrobid. No CVAT on exam EK, NSR, No stemi: unchaged from previous 1 repeat neuro exam unremarkable, denies any current dizziness or lightheadness, strong steady gait. Will d/c naproxen and prescribe tylenol for her costochondritis dx yesterday. pt in NAD, agreeable to plan Disposition - Disposition Referrals: [facility] [Outside] [facility] [Outside] [facility] [Outside] Disposition: HOME/ ROUTINE Disposition Time: 23:52 Condition: GOOD Additional Instructions: KERON CATHERINE, thank you for letting us take care of you today. Your provider was Gonzalo Palafox and you were treated for DIZZINESS. The emergency medical care you received today was directed at your acute symptoms. If you were prescribed any medication, please fill it and take as directed. It may take several days for your symptoms to resolve. Return to the Emergency Department if your symptoms worsen, do not improve, or if you have any other problems. Please contact your doctor or call one of the physicians/clinics you have been referred to that are listed on the Patient Visit Information form that is included in your discharge packet. Bring any paperwork you were given at discharge with you along with any medications you are taking to your follow up visit. Our treatment cannot replace ongoing medical care by a primary care provider outside of the emergency department. Thank you for allowing the [facility] team to be part of your care today. If you had an X-Ray or CT scan: A Radiologist will review the ED reading if any change in treatment is needed we will contact you. If you had a blood, urine, or wound culture: It will take several days for the results, if any change in treatment is needed we will contact you. If you had an STI test: It will take 48 hours for the results. Please call after 1 week if you have not heard back. Prescriptions: Acetaminophen [8 Hour Pain Relief] 650 mg PO Q12H PRN 6 Days #12 tablet.er PRN Reason: Pain, Moderate (4-7) Instructions: Side Effects From Medicines, Dizziness, Nonvertigo, (DC), Adverse Drug Reactions, Adult (DC) Forms: [employer] (German) - Clinical Impression Clinical Impression: Medication side effect, Dizziness
[2019-01-14 00:38] VITALS: BP 118/76; PULSE 88; TEMP 98.9
[2019-01-14 00:56] VITALS: O2SAT 98
--- NOTE | 2019-01-14 14:33 | CARD ---
APPROVED REPORT Date of service: 01/13/2019 EKG Measurement Heart [id number] <Conclusion> Normal sinus rhythm Normal ECG
== END 2019-01-14 00:36 | disposition home or self-care (01) ==
LOC: C.ER 22:04
DX: R42 Dizziness and giddiness (principal); T39.315A Adverse effect of propionic acid derivatives, initial encounter; Z72.0 Tobacco use